=== PATIENT | male | born 1990 | race Caucasian/White ===

== ENCOUNTER 2020-02-13 08:41 | Emergency (ER) | payer SELFPAY ==
[~2020-02-13] VITALS: Ht 154.9 cm; Wt 65.9 kg
[~2020-02-13 08:41] MED LIST: AMOXICILLIN500 MG OR; NO HOME MEDS; ULTRAM50 MG PO
[2020-02-13 09:42] LABS: HEMOGLOBIN 13.8 g/dl (14.0-18.0); IMMATURE GRANULOCYTES 0.6 % (0.0-5.0); MEAN CORPUSCULAR HGB 28.9 pG CALC (26.0-32.0); MEAN CORPUSCULAR HGB CONC 33.1 g/dL CAL (32.0-36.0); NEUT# 5.91 thou/uL (1.82-7.42); RED BLOOD COUNT 4.77 mill/uL (4.70-6.10); RED CELL DISTRI WIDTH 13.7 % (11.5-15.5)
[2020-02-13 09:44] LABS: HEMATOCRIT 41.7 % (39.0-50.0); MEAN CELL VOLUME 87.4 fL CALC (80.0-100.0)
[2020-02-13 09:51] LABS: ANION GAP 7 (6-22 (CALC)); BUN 12 mg/dL (9-20); BUN/CREATININE RATIO 15 (12-20 (CALC)); CARBON DIOXIDE 27 mmol/l (22-30); CHLORIDE 106 mmol/l (95-108); CREATININE 0.8 mg/dL (0.7-1.3); GFR > 60 ML/MIN (>=60 (CALC)); GFR FOR AFR.AMER. > 60 ML/MIN (>=60 (CALC)); POTASSIUM 3.4 mmol/l (3.5-5.1); SODIUM 137 mmol/l (137-146)
[2020-02-13 12:54] VITALS: BP 121/59
== END 2020-02-13 12:58 | disposition home or self-care (01) | DRG 313 ==
LOC: ED 08:41 → ED-I 10:30 → ED 12:58
PROVIDERS: Family Medicine
DX: R07.9 Chest pain, unspecified (principal)

== ENCOUNTER 2020-09-07 05:11 | Emergency (ER) | payer SELFPAY ==
[~2020-09-07] VITALS: Ht 154.9 cm; Wt 75.0 kg
[2020-09-07 05:20] VITALS: BP 109/70
[2020-09-07] MEDS ORDERED: IBUPROFEN600 MG PO (06:18)
== END 2020-09-07 06:48 | disposition home or self-care (01) | DRG 563 ==
LOC: ED 05:11
DX: S93.402A Sprain of unspecified ligament of left ankle, initial encounter (principal); X50.0XXA Overexertion from strenuous movement or load, initial encounter; Y93.66 Activity, soccer; Y92.830 Public park as the place of occurrence of the external cause